=== PATIENT | male | born 2000 | race African-American/Black ===

== ENCOUNTER 2023-08-03 00:45 | Emergency (ER) | payer OTHER ==
[~2023-08-03] VITALS: Ht 167.6 cm; Wt 68.2 kg
[2023-08-03 00:51] VITALS: TEMP 97.8
[2023-08-03 01:24] LABS: ALANINE AMINOTRANSFERASE 47 U/L (12-78); ALBUMIN 4.3 G/DL (3.4-5.0); ALBUMIN/GLOBULIN RATIO 1.1 (1.1-1.5); ALKALINE PHOSPHATASE 65 IU/L (46-116); ANION GAP 12 (8-16); ASPARTATE AMINO TRANSFERASE 21 U/L (10-37); BLOOD UREA NITROGEN 22 MG/DL (7-18); BUN/CREATININE RATIO 17.2 (10.0-20.0); CHLORIDE 105 MMOL/L (99-107); CREATININE 1.28 MG/DL (0.60-1.10); GLUCOSE 104 MG/DL (70-104); LIPASE 29 U/L (16-77); POTASSIUM 5.3 MMOL/L (3.5-5.1); SODIUM 140 MMOL/L (135-145); TOTAL CARBON DIOXIDE 23.1 MMOL/L (24-32); TOTAL PROTEIN 8.1 G/DL (6.4-8.2); eCRCL 81 ML/MIN; eGFR 70 ML/MIN
[2023-08-03 02:34] LABS: BASOPHILS % (AUTO) 0.1 % (0-1); LYMPHOCYTES % (AUTO) 3.1 % (21-51); MONOCYTES # (AUTO) 0.7 X10'3 (0-0.9)
[2023-08-03 02:36] LABS: EOSINOPHILS % (AUTO) 0.4 % (0-6); HEMATOCRIT 44.5 % (42.0-52.0); HEMOGLOBIN 14.7 g/dl (14.0-17.9); LYMPHOCYTES # (AUTO) 0.4 X10'3 (1.1-4.8); MEAN CORPUSCULAR HEMOGLOBIN 28.8 PG (27.0-31.0); MEAN CORPUSCULAR VOLUME 87.4 FL (78-98); MEAN PLATELET VOLUME 7.5 FL (7.4-10.4); MONOCYTES % (AUTO) 5.7 % (2-12); NEUTROPHILS # (AUTO) 10.5 X10'3 (1.8-7.7); NEUTROPHILS % (AUTO) 90.7 % (42-75); RED BLOOD COUNT 5.09 X10'6 (4.70-6.10); RED CELL DISTRIBUTION WIDTH 14.8 % (11.5-14.5); WHITE BLOOD COUNT 11.6 X10'3 (4.5-11.0)
[2023-08-03 02:52] LABS: PLATELET COUNT 182 X10'3 (140-440)
[2023-08-03] MEDS ORDERED: LOPE2CAP PO (04:12)
[2023-08-03] MEDS ORDERED: ONDA-245 PO (04:12)
[2023-08-03] MEDS: ondansetron/PF 4mg/2ml inj IV ONE (04:19)
[2023-08-03] MEDS: normal saline 1000ml 1,000 ML IV ONE (04:19)
[2023-08-03] MEDS: loperamide 2mg capsule PO ONE (04:19)
[2023-08-03 05:05] VITALS: BP 98/67; PULSE 67; RESP 17; O2SAT 98
== END 2023-08-03 05:10 | disposition home or self-care (01) ==
LOC: ER 00:46
DX: K52.9 Noninfective gastroenteritis and colitis, unspecified (principal); E86.0 Dehydration
CPT/HCPCS: 36415; 80053; 83690; 85025; 96361; 96374; 99283; J2405; J7030